=== PATIENT | male | born 1970 | race American Indian/Alaskan Native ===

== ENCOUNTER 2020-08-21 19:07 | Emergency (ER) | payer OTHER, BC ==
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
[2020-08-21] MEDS ORDERED: ONDANSETRON 4 MG ODT TAB PO ONE (20:59)
[2020-08-21] MEDS ORDERED: HYDROcodone/ACETAMINOPHEN 7.5-325MG TAB PO ONE (20:59)
[2020-08-21] MEDS ORDERED: IBUPROFEN 600 MG TAB PO ONE (20:59)
[2020-08-21] MEDS ORDERED: LIDOCAINE (1%) 10 MG/1 ML VIAL 20 ML MDV INFILTRATI ONE (20:59)
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
--- NOTE | 2020-08-21 22:44 | XRay Report ---
RIGHT FOOT 4 VIEW(S) INDICATION / CLINICAL INFORMATION: Post-reduction COMPARISON: Right foot radiograph 08/21/2020 FINDINGS: BONES / JOINT(S): Postreduction films at 1027 demonstrate anatomical alignment of the tarsometatarsal joints. Note is made that post reduction films at 1018 show persistent mild subluxation of the first tarsometatarsal joint. There is an acute fracture of the lateral great toe sesamoid with approximate ly 7 mm of displacement. Findings concerning for plantar plate injury. Consider further evaluation [facility] MR. No significant arthritis. SOFT TISSUES: Mild-moderate medial forefoot edema. ADDITIONAL FINDINGS: None. Signer Name: Vasile Conrad MD Signed: 08/21/2020 10:39 PM Workstation Name: [id number]
--- NOTE | 2020-08-21 22:44 | XRay Report ---
RIGHT FOOT 4 VIEW(S) INDICATION / CLINICAL INFORMATION: Post-reduction COMPARISON: Right foot radiograph 08/21/2020 FINDINGS: BONES / JOINT(S): Postreduction films at 1027 demonstrate anatomical alignment of the tarsometatarsal joints. Note is made that post reduction films at 1018 show persistent mild subluxation of the first tarsometatarsal joint. There is an acute fracture of the lateral great toe sesamoid with approximate ly 7 mm of displacement. Findings concerning for plantar plate injury. Consider further evaluation [facility] MR. No significant arthritis. SOFT TISSUES: Mild-moderate medial forefoot edema. ADDITIONAL FINDINGS: None. Signer Name: Vasile Conrad MD Signed: 08/21/2020 10:39 PM Workstation Name: [id number]
[2020-08-21 22:55] VITALS: BP 129/87
== END 2020-08-21 22:54 | disposition home or self-care (01) ==
LOC: ED 19:07
DX: S93.104A Unspecified dislocation of right toe(s), initial encounter (principal); S70.01XA Contusion of right hip, initial encounter; M62.838 Other muscle spasm; F17.200 Nicotine dependence, unspecified, uncomplicated; Z79.899 Other long term (current) drug therapy; V49.49XA Driver injured in collision with other motor vehicles in traffic accident, initial encounter; Y93.89 Activity, other specified; Y92.488 Other paved roadways as the place of occurrence of the external cause; Y99.8 Other external cause status
CPT/HCPCS: 70450; 72125; 73521; Q0162